=== PATIENT | female | born 1990 | race African-American/Black ===

== ENCOUNTER 2021-05-25 18:19 | Outpatient (CLI) | payer SELFPAY ==
[~2021-05-25] VITALS: Ht 175.3 cm; Wt 80.0 kg
[2021-05-25 18:52] VITALS: BP 125/76
[2021-05-25] MEDS ORDERED: metroNIDAZOLE (FLAGYL) 500MG TABLET PO ONE (19:45)
--- NOTE | 2021-05-25 20:11 | IPNPDOC ---
Subjective Date Seen The patient was seen on 05/25/21. Subjective Chief Complaint/HPI 31yo at 37w 4d by LMP c/w 7w4d US with EVELIA Jun presents with concern for ROM. Pt states she stood up and felt 'wet' this afternoon but denies any gush of fluid. She states she noted a cloudy white discharge on her clothing, denies any odor or bleeding. Does not feel like it was urine. She otherwise denies ctx, bleeding and endorses +GFM. General: Reports: Normal Appetite; Denies: Chills, Night Sweats, Fatigue, Malaise Constitutional: Denies: Chills, Fever, Night Sweats Pulmonary: Denies: Dyspnea, Cough Cardiovascular: Denies: Chest Pain, Palpitations, Orthopnea, Paroxysmal Noc. Dyspnea, Lt Headedness Genitourinary: Denies: Dysuria, Frequency, Incontinence, Retention Psych: Reports: Mood Normal; Denies: Depression, Memory Issues Objective Physical Examination General Exam: Positive: Alert, No Acute Distress Chest Exam: Positive: Normal air movement Heart Exam: Positive: Rate Normal Abdomen Exam: Positive: Other (gravid) Female Exam: Positive: Discharge (SSE: neg for nitrizine, pooling and ferning. Mod amount of white, milky discharge. SVE: C/T/H) Extremity Exam: Positive: Normal pulses; Negative: Clubbing, Cyanosis, Edema Psych Exam: Positive: Mental status NL, Mood NL, Oriented x 3 Other physical findings JOSEFINA neg Wet mount with >50% clue cells Nitrizine/ferning both negative FHT: 140's, mod variability, + accels. Early decel x1, questionable late deceleration at 1914. Remaining tracing following deceleration reassuring with mod variability and + accels [place]: irregular contractions RAD Interpretation STUDY: TAUS: cepahlic, MVP 2.7cm Assessment /Plan Assessment 31yo at 37w4d by LMP c/w 7wk US, EVELIA Jun. complicated by hx of GHTN in prior , hx of LTCS x1, hx of HSV on valtrex. Plan/VTE VTE Prophylaxis Ordered?: No VTE Exclusion Mechanical Proph: Other (triage visit only) Plan SSE neg for ROM x3. Wet prep + for BV. 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 Return precautions given. VS, I&O, 24H, Fishbone Vital Signs/I&O Vital Signs Date Time Temp Pulse Resp B/P (MAP) Pulse Ox O2 Delivery O2 Flow Rate FiO2 05/25/21 18:52 97.0 76 18 125/76 (92) 100 Room Air Laboratory Data Microbiology wet prep + clue cells AUSTIN DILLON M.D. May 25, 2021 20:11
== END 2021-05-25 20:00 | disposition home or self-care (01) ==
LOC: M LDO 18:19
PROVIDERS: ATTEND Obstetrics & Gynecology
DX: O26.893 Other specified pregnancy related conditions, third trimester (principal); Z3A.37 37 weeks gestation of pregnancy; N89.8 Other specified noninflammatory disorders of vagina; O34.219 Maternal care for unspecified type scar from previous cesarean delivery; Z87.59 Personal history of other complications of pregnancy, childbirth and the puerperium; Z88.1 Allergy status to other antibiotic agents
CPT/HCPCS: 59025; 76815; G0378; G0463

== ENCOUNTER 2021-06-04 11:11 | Inpatient (IN) | payer OTHER, SELFPAY ==
[2021-06-04] VITALS (8 sets, daily range): BP systolic 119–140; BP diastolic 69–90
[~2021-06-04] VITALS: Ht 175.3 cm; Wt 88.5 kg
[2021-06-04] MEDS ORDERED: LACTATED RINGER'S 1000 ML IV STA (11:29)
[2021-06-04] MEDS ORDERED: METHYLERGONOVINE MALEATE 0.2 MG/ML VIAL (J2210) IM PRN (11:30)
[2021-06-04] MEDS ORDERED: CARBOPROST TROMETHAMINE 250 MCG/ML AMP IM PRN (11:30)
[2021-06-04] MEDS ORDERED: LIDOCAINE 1% MDV 20ML VIAL INFIL PRN (11:30)
[2021-06-04] MEDS ORDERED: OXYTOCIN DRIP 30 UNITS in IV 1 EA IV PRN ×4 (11:30)
[2021-06-04] MEDS ORDERED: TRANEXAMIC ACID INJection 1,000 MG in NS 100 ML IV PRN (11:30)
[2021-06-04 12:02] LABS: BASO % 0.5 % (0.0-1.0); EOS # 0.1 10^3/uL (0.0-0.5); EOS % 1.4 % (0.0-3.0); HEMATOCRIT 34.1 % (36.0-47.0); HEMOGLOBIN 10.9 g/dl (12.0-15.5); LYMPH # 0.9 10^3/uL (1.5-5.0); LYMPH % 20.1 % (24.0-44.0); MEAN CORPUSCULAR HEMOGLOBIN 25.2 pg (27.0-33.0); MEAN CORPUSCULAR VOLUME 78.8 fl (80.0-96.0); MONO # 0.3 10^3/uL (0.0-0.8); MONO % 7.6 % (2.0-8.0); NEUTROPHILS % 70.2 % (36.0-66.0); PLATELET COUNT, AUTOMATED 260 10^3/uL (150-450); RED BLOOD COUNT 4.33 10^6/uL (4.00-5.40); WHITE BLOOD COUNT 4.2 10^3/uL (4.0-10.0)
[2021-06-04] MEDS ORDERED: ASPI81CH33 PO (12:23)
[2021-06-04] MEDS ORDERED: VITA100T59 PO (12:23)
[2021-06-04] MEDS ORDERED: FERR325T3 PO (12:23)
[2021-06-04] MEDS ORDERED: PRENTAB9 PO (12:23)
[2021-06-04] MEDS ORDERED: METR375C3 PO (12:23)
[2021-06-04] MEDS: LR 1,000 ML IV SCH (13:13)
--- NOTE | 2021-06-04 13:44 | HPEPDOC ---
Obstetrical History & Physical General Date of Admission Jun 04, 2021 at 11:11 History of Present Illness Chief Complaint: Patient is a 31yo at 39+0 wks gestation who presents to L&D triage for induction of labor due to heart rate cat 2 tracing found on NST in clinic. Patient presents: Spouse and mother HPI: Reports some irregular contractions, otherwise feeling physically well today. Frustrated that she cannot wait for labor to start. Strongly desires TOLAC and to be able to remember delivery . Denies any leaking of fluid, vaginal bleeding. Reporting good movement. Denies any headaches, nausea, vomiting, RUQ pain. Denies any dysuria, vaginal discharge, vaginal itching/burning. ROS: GEN: Feeling Fine. Denies fevers, chills. Denies Fatigue. Psych: Denies severe depression, SI/HI. States moods are stable. Head: Denies Headaches, facial pain, or sinus pressure. Eyes: Denies change in vision/ scotomata/blurred vision. ENT: Denies sore throat. Denies ear pain or pressure. Denies nasal discharge. Resp: Denies SOB/H[place]INSON, cough, or wheezing. Card: Denies palpitations or Chest pain. GI: Denies nausea, vomiting, diarrhea, constipation. No abdominal pain. Some heartburn. : Denies vaginal burning or itching. Denies foul smelling vaginal discharge. Denies dysuria. Denies flank pain. Denies any s/s of HSV outbreak. MSK: Denies calf pain. Denies low back pain. Lymph: Denies edema to upper or lower extremities bilaterally. Skin: Denies any skin changes, lesions, lacerations, ecchymosis, pruritus, or rashes. ALLERGIES: No allergic/immunologic symptoms. Reviewed allergy azithromycin. Dating Final EDC: Jun 11, 2021 Final EDC for Daily Update: Jun 11, 2021 Final EDC by: LMP LMP: Sep 04, 2020 EGA at Admission: 39.0 Antepartum Course Diagnos(e)s 1. Hx PTLC, desires TOLAC 2. Hx GHTN, baseline labs normal 3. Hx HSV 2, on valtrex 4. EIF on anatomy scan, QUAD negative 5. Hx IUGR this , BPP 6/8 on 06/04 6. Anemia@28wks (10.5/32.4) Height (inches): 68 Pre- weight (lbs.): 162 Admission Weight (lbs.): 195.8 Change in Weight (lbs.): 33.8 Past Medical History Past Obstetrical History : Past Obstetrical History: Multigravida (2014 PLTCS for NRFHR after prolonged PROM at 39wks, female 5#9oz. G2 SAB. ) TECHNICAL SALES SUPPORT SPECIALIST History: Spontaneous (x1), Genital Warts (, on HSV prophylaxis) Past Medical History Medical History Hx GHTN first Surgical History: section Family History Family History Mother DM, MGM DM, Sister CVA Social History Marital Status: Family situation: Spouse/partner home Psychosocial History: No pertinent psych hx * Smoker: non-smoker Alcohol: Denies Drugs: denies Imunizations Tdap status: current Allergies Coded Allergies: azithromycin (Verified Allergy, Severe, hives, sob, , 06/04/21) Medications Scheduled Ascorbic Acid (Vitamin C) 100 Mg Tablet, 1 TAB PO DAILY Aspirin (Aspirin) 81 Mg Tab.chew, 81 MG PO DAILY for pain No.137/Iron/Folic Acd ( Vitamin Tablet) 1 Each Tablet, 1 TAB PO DAILY Miscellaneous Medications Ferrous Sulfate (Ferrous Sulfate) 325 Mg Tablet.dr, 325 MG PO Metronidazole (Metronidazole) 375 Mg Capsule, 375 MG PO Physical Examination Physical Examination Exam: General: Well-appearing, in no acute distress. Uncomfortable with contractions. PSYCH: Well groomed. Appropriate affect, normal mood. Conversed easily. Neuro: Oriented to time, place, and person. RESP: Lungs clear to auscultation bilaterally without wheezes, rales or rhonchi. Unlabored breathing. CV: Normal RRR, no murmur, c/w normal . No edema to bilateral upper and lower extremities. Negative calf tenderness. Breast: Normal gravid appearance, without discharge or skin lesions Back: No tenderness on palpation. ABD: Gravid. Soft, non-tender. BS normal x4 quad. Uterus non-tender. MSK: Normal mvmt all extremities. Steady gait. Judy from a seated position without assistance. SKIN: Dry, intact. Genitalia: External Genitalia showed no abnormalities, without lesions; normal vulva with NO vulvar atrophy, hypertrophy, stricture, adhesions, ulcers, lesions, masses. No vaginal discharge was observed. No unusual odors. Perianal area intact without lesions or visible hemorrhoids. No skin tag noted. Obstetrical: Clinical Pelvimetry: Pelvis adequate, untested. FHR: 140 rate, moderate variability, accelerations present. Noted 1variable while on L&D monitor. Contractions present, irregular. 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 for exam: Alia JanessaROCK Vital Signs/I&O Vital Signs Label Value Date Time Patient Temperature 97.6 degrees F 06/04/21 1150 Temperature Source Temporal 06/04/21 1150 Blood Pressure Assessment 121/69 (86) 06/04/21 1150 Source Automatic Cuff (NIBP) Pulse 72 06/04/21 1150 Respiratory Rate 18 bpm 06/04/21 1150 Laboratory Data 24H LABS Laboratory Tests 2 06/04/21 11:29: Serology Scanned Report Hepatitis B Testing Item Value Date Time Platelet Count 260 10^3/uL 06/04/21 1129 Basophils (%) (Auto) 0.5 % 06/04/21 1129 Eosinophils # (Auto) 0.1 10^3/uL 06/04/21 1129 Neutrophils # (Auto) 3.0 10^3/uL 06/04/21 1129 Eosinophils (%) (Auto) 1.4 % 06/04/21 1129 Monocytes (%) (Auto) 7.6 % 06/04/219 Mean Corpuscular Hemoglobin 25.2 pg L 06/04/21 1129 Mean Corpuscular Volume 78.8 fl L 06/04/21 1129 Hemoglobin 10.9 g/dl L 06/04/21 1129 White Blood Count 4.2 10^3/uL 06/04/21 1129 Red Blood Count 4.33 10^6/uL 06/04/21 1129 Hematocrit 34.1 % L 06/04/219 Mean Corpuscular Hemoglobin Concent 32.0 g/dl 06/04/21 1129 Red Cell Distribution Width 14.8 % H 06/04/21 1129 Immature Granulocyte % (Auto) 0.2 % 06/04/21 1129 Neutrophils (%) (Auto) 70.2 % H 06/04/21 1129 Lymphocytes (%) (Auto) 20.1 % L 06/04/21 1129 Lymphocytes # (Auto) 0.9 10^3/uL L 06/04/21 1129 Monocytes # (Auto) 0.3 10^3/uL 06/04/21 1129 Nucleated Red Blood Cells % (auto) 0.0 % 06/04/21 1129 Basophils # (Auto) 0.0 10^3/uL 06/04/21 1129 Pertinent Laboratoy Data Blood Type: A+ RBC Antibody Screen: Negative HIV: Negative Hepatitis B: Negative Rapid Plasma Reagin: Nonreactive Rubella: Immune Varicella: Immune Chlamydia/Gonorrhea: Negative Group B Streptococcus: Negative Quad Screen Test: Negative Cystic Fibrosis: Negative Glucose Tolerance Test: 130 Anatomy Ultrasound Ultrasound Date: Jan 21, 2021 Placenta Location: Anterior (normal anatomy with limited views of face and EIF to heart) Other Ultrasounds 03/12/21 Follow up: AUA 26+2. EFW 18% with AC <10%. Normal face. 04/09/21 BPP: 06/14 BPP, EFW 17%, AC 9% 04/23 BPP: 06/14/ BPP, EFW 30%, AC 20% 05/20 BPP: 06/14, EFW 22%, AC 8% 06/03 BPP: 04/14, EFW 18%, AC 10% Assessment/Plan Assessment 31yo at 39+0 wks gestation presents to L&D for induction of labor at term due to heart rate cat 2 tracing while in clinic today. A positive/GBS negative/RI/ VSS Benign physical exam FHR Cat 2 tracing with additional variable. Pt had one late and one variable decel during APFT while in clinic today. Was being monitored for IUGR. BPP yesterday 06/14 with last EFW 18%, AC10%, VTX by Ultrasound EFW: 3000 SVE: 1/0/-3, posterior, medium Hx for NRFHR. Hx HSV2, currently on valtrex. PLAN: Admit, labs, IV, consent completed. Reviewed TOLAC consent with patient, desires TOLAC. Discussed plan with Dr. Gayle. Address pain needs as the arise, patient undecided for pain management in labor Continuous EFM Bright light exam negative for lesions. Plan to start IOL process with double lumen antoine bulb. Placed with speculum, filled to 80/80 at 1300. Pt tolerated well. Plan to continue with pitocin once antoine bulb out. Discussed thoroughly patient expectations for labor and possibility of repeat if fetus does not tolerate labor. Anticipate Consult physician service as needed Labor and Delivery Counseling Reviewed with patient the following with the patient in regards to vaginal delivery (Deliver through the vaginal canal): The purpose of the procedure is to deliver a baby. There may be maternal risks involved with vaginal delivery to include but not limited to: -Use of the medications to induce or augment labor with the risks of uterine rupture -Artificial rupture of the amniotic sac with the risk of cord prolapse -Internal monitors with the associate risks of infection or fever -Infection, which is fever during the labor process -IV pain management, anesthesia as indicated and associated risks with those medications -Vaginal lacerations and repair, episiotomy and repair when needed -Injury to the baby or mother at the time of delivery, -Maternal organ damage, maternal or -Prolonged hospitalized -Possible painful intercourse, chronic pelvic pain In addition to these maternal risks, there may be other possible risks involved in this procedure including, but not limited to: bleeding with the possible need for blood transfusion. Risks of blood transfusion can include but are not limited to: possible transfusion reaction, virus transmission. The likelihood of a successful outcome for this procedure is: [Good] Reviewed with patient the generally recognized and accepted practical alternatives to this procedure and the accompanying risks are: -Possible emergent Section with its risk of damage to internal organs and necessary repairs, laceration to the baby and necessary repairs -Possible operative vaginal delivery to include forceps or vacuum assist, resulting in: maternal tissue damage, baby bruising, hematoma, scalp swelling, scalp laceration, skull fracture, facial paralysis and its repair Reviewed with patient the practice of medicine is not an exact science and that no guarantees can be made to the patient concerning the results of this procedure, nor guarantees to the effect this procedure will have on underlying medical issues. Reviewed with patient that during the course of labor, it may be necessary or appropriate to perform additional procedure(s) which were unforeseen or not know n to be needed at the time of admission. TOLAC consent on paper chart. SHAHLA KNIGHT CNM Jun 04, 2021 11:44
--- NOTE | 2021-06-04 15:46 | IPNPDOC ---
Obstetrical Progress Note Date of Service Jun 04, 2021 Subjective Feeling more pain with contractions, states 5/10, low cramping. Spouse at Bedside for support. Objective Vital Signs Date Time Temp Pulse Resp B/P (MAP) Pulse Ox O2 Delivery O2 Flow Rate FiO2 06/04/21 11:50 72 18 121/69 (86) 06/04/21 11:50 97.6 S: Coping well with pain. Spouse at bedside for support O: FHR- 140, mod variability. Accelerations present. 3 late decelerations noted, resolved with position changes. Contractions- every 5 min. SVE- deffered, antoine bulb still in place. Membranes- intact. Assessment and Plan Additional Comments A/P 31yo at 39+0 wks gestation admitted for induction of labor due to heart rate cat 2 tracing in clinic. A positive/GBS negative/RI/ VSS FHR Cat 2 tracing, intermittent late decelerations noted. Overall reassuring. Address pain needs as they arise, discussed option for IV pain medication. Anticipate starting pitocin once antoine bulb out. Anticipate Hx , Dr. Gayle aware of patient. Pt still desires to continue with TOLAC. Consult physician service as needed SHAHLA KNIGHT CNM Jun 04, 2021 15:46
[2021-06-05] VITALS (22 sets, daily range): BP systolic 89–152; BP diastolic 50–110
[2021-06-05] MEDS ORDERED: FENTANYL 2MCG/ML ROPIVACAINE 0.2% IN 0.9% NACL 100ML IVBAG As Ordered ONE (07:08)
--- NOTE | 2021-06-05 07:09 | IPNPDOC ---
Text Note Date of Service The patient was seen on 06/05/21. NOTE 06/05/21 0700 review progress 31 y.o ADMITTED CATEGORY 2 STRIP FROM OFFICE IOL [place] BULB. REQUESTS TOLAC REFUSES PITOCIN ACCEPTS [facility] . HISTORY INCLUDES PTLC FOR NRFHT ,GHTN, HSV 2 NO CERVICAL LESIONS,EIF QUAD NEGATIVE,?IUGR BABY >6 LBS BULB FELL OUT AND CONTRACTIONS MODERATE REQUESTS PAIN MEDICATION CERVICAL CHECK POSTERIOR 4 CM 70% EFFACED -3 STATION AROM MINIMAL FLUID US VERTEX FLUID 5 CM FOUND 1 QUADRANT ONLY OLIGOHYDRAMNIOS. REQUESTS EPIDURAL SAFE TO P ROCEED VS,Fishbone, I+O VS, Fishbone, I+O Laboratory Tests 06/04/21 11:29 Vital Signs Date Time Temp Pulse Resp B/P (MAP) Pulse Ox O2 Delivery O2 Flow Rate FiO2 06/05/21 04:47 97.8 78 18 121/69 (86) Dharmesh Gayle MD Jun 05, 2021 07:08
[2021-06-05] MEDS ORDERED: ACYC1CAP20 PO (07:21)
[2021-06-05] MEDS ORDERED: ePHEDrine SULFATE 25 MG/5 ML(5MG/ML) SYRINGE As Ordered ONE (08:14)
[2021-06-05] MEDS: ePHEDrine SULFATE 25 MG/5 ML(5MG/ML) SYRINGE IV PRN (08:29)
[2021-06-05] MEDS ORDERED: ONDANSETRON 4MG/2ML VIAL IV PRN (08:30)
[2021-06-05] MEDS ORDERED: NALOXONE INJ 0.4MG/1ML VIAL (J2310 PER 1MG) IV PRN (08:30)
[2021-06-05] MEDS ORDERED: FENTANYL/ROPIVACAINE/NACL BAG 100 ML EPIDURAL SCH (08:30)
[2021-06-05] MEDS ORDERED: EPIDURAL COMMENT XX SCH (08:30)
[2021-06-05] MEDS ORDERED: diphenhydrAMINE 50MG/ML VIAL (J1200) IV PRN (08:30)
[2021-06-05] MEDS ORDERED: LACTATED RINGER'S 1000 ML IV PRN (08:30)
[2021-06-05] MEDS ORDERED: EPIDURAL/PCA KEYS XX PRN (08:30)
[2021-06-05] MEDS: LR 1,000 ML IV SCH (08:30)
[2021-06-05] MEDS ORDERED: REFRIGERATOR IV KEYS XX PRN (08:30)
--- NOTE | 2021-06-05 08:40 | IPNPDOC ---
Obstetrical Progress Note Date of Service Jun 05, 2021 Subjective Pt resting comfortably after epidural placement, states improvement in pain with mild left sided discomfort. Objective Vital Signs Date Time Temp Pulse Resp B/P (MAP) Pulse Ox O2 Delivery O2 Flow Rate FiO2 06/05/21 08:18 79 98/51 (67) 06/05/21 04:47 97.8 18 Assessment Heart Rate (FHR): 120 Variability: Moderate Accelerations: Positive Decelerations: Late, Variable, Intermittent Heart Rate Tracing: Category II Tocometer Contractions: Yes Frequency: every 1-3 min. Duration: greater than 60 seconds Strength: palpated as moderate, resting tone palp/soft Sterile Vaginal Examination Dilation: 6 cm Effacement (%): 80% Station: -3 Cervical Consistency: Soft Cervical Position: Posterior Postion/Presentation: Cephalic presentation Assessment and Plan Age: 31 : 3 Term: 1 Pre-term: 0 Abortions: 1 Livin Weeks & Days 39+1 Status: Reassuring Group B Streptococcus: Negative Anticipate: Vaginal Delivery Additional Comments LR @125ml/hr, continuous efm x2,monitor for change in or maternal status, encourage frequent maternal repositioning, evaluate for change as indicated, consider pitocin augmentation as indicated, anticipate vaginal delivery JOHANNA RAMOS CNM Jun 05, 2021 08:40
--- NOTE | 2021-06-05 10:17 | IPNPDOC ---
Obstetrical Progress Note Date of Service Jun 05, 2021 Subjective Pt c/o rectal pressure Objective Vital Signs Date Time Temp Pulse Resp B/P (MAP) Pulse Ox O2 Delivery O2 Flow Rate FiO2 06/05/21 09:35 92 06/05/21 09:28 103/58 (73) 06/05/21 04:47 97.8 18 Assessment Heart Rate (FHR): 130 (frequent breaks in monitoring audible decel with pushing.) Decelerations: Other (Repositioned to right lateral with recovery to baseline) Tocometer Contractions: Yes Frequency: every 1-3 min. Duration: greater than 60 seconds Strength: palpated as moderate, resting tone palp/soft Sterile Vaginal Examination Dilation: complete Effacement (%): 100% Station: +2 Postion/Presentation: Cephalic presentation Assessment and Plan Age: 31 : 3 Term: 1 Pre-term: 0 Abortions: 1 Livin Weeks & Days 39+1 Group B Streptococcus: Negative Anticipate: Vaginal Delivery Additional Comments Pt repositioned and coached to push with contractions, anticipate vaginal delivery. Pt states desire to continue to avoid pitocin after delivery. Reviewed rationale for use to prevent bleeding after delivery. Pt will attempt early . If bleeding is heavy, pt is aware that pitocin will be offered again. JOHANNA RAMOS CNM Jun 05, 2021 10:17
[2021-06-05 12:04] LABS: CORD GAS ABE A -6.2; CORD GAS ABE V -5.2; CORD GAS HCO3 A 22.2 MEQ/L; CORD GAS HCO3 V 20.5 MEQ/L; CORD GAS O2 SAT V 78.5 %; CORD GAS PCO2 V 40.4 mmHg; CORD GAS PH A 7.224 UNITS; CORD GAS PH V 7.323 UNITS; CORD GAS PO2 A 28.1 mmHg; CORD GAS SBC A 18.6 MEQ/L; CORD GAS SBC V 19.8 MEQ/L; CORD GAS TCO2 A 23.9 MEQ/L; CORD GAS TCO2 V 21.7 MEQ/L
[2021-06-05] MEDS ORDERED: RHOGAM 300 MCG (1500 IU) INJ (J2790) IM SCH (12:20)
[2021-06-05] MEDS ORDERED: IBUPROFEN 800 MG TAB PO PRN (12:20)
[2021-06-05] MEDS ORDERED: METHYLERGONOVINE MALEATE 0.2 MG TAB PO PRN (12:20)
[2021-06-05] MEDS ORDERED: MEASLES,MUMPS,RUBELLA VACCINE INJ (MMR-II) (90707) SC SCH (12:20)
[2021-06-05] MEDS ORDERED: DIBUCAINE 1% OINTMENT 30GM TOP PRN (12:20)
[2021-06-05] MEDS ORDERED: DOCUSATE SODIUM 100MG CAPSULE PO PRN (12:20)
--- NOTE | 2021-06-05 12:44 | DNPDOC ---
[facility] [place] Delivery Note Delivery Note DATE OF DELIVERY: 05Jun2021 PREDELIVERY DIAGNOSIS: 39-1/7 weeks' gestation and labor. POST DELIVERY DIAGNOSIS: Delivered. PROCEDURE: Vaginal after . BUOY TENDER: Zari Ramos ANESTHESIA: epidural. ESTIMATED BLOOD LOSS: 350 mL. FINDINGS: 5 pound 11 ounce female infant Yarely, Score 9/9, no nuchal cord. DELIVERY SUMMARY: Patient is a 31-year-old 3 now para 2-0-1-2 who was admitted to labor and delivery for IOL on 04Jun2021. Pt called out with rectal pressure and was found to be C/C/+2. Slow decent was made with maternal pushing efforts in multiple positions. Pt assisted to right lateral position and progressed to in OA with restitution to PRIYANKA. No nuchal cord was noted after delivery of the head. The right anterior shoulder delivered easily followed by the posterior shoulder and corpus. The was placed immediately skin to skin on the maternal abdomen where she was dried and stimula sukhjinder for a vigorous cry. Pt continued to decline pitocin. Cord gases were collected and sent for testing. The placenta delivered intact in Huertas presentation with moderate bleeding. The fundus was massaged until firm and bleeding slowed appropriately. Examination of the perineum revealed a small second degree laceration which was repaired using the Henry method with 3-[address]. Bleeding was noted to have increased and the cervix was swept for several clots and the fundus massaged with bleeding appropriately slowed. The patient was counseled on the need for watching or increased bleeding, frequent fundal massage in the immediate period, early and reasons to call for help with expressed understanding and continued to d ecline bleeding prophylaxis. ZARI RAMOS CNM Jun 05, 2021 12:44
[2021-06-05] MEDS: ACETAMINOPHEN TAB 650MG DOSE (2X325MG) PO PRN ×2 (17:54→22:29)
[2021-06-06 06:00] VITALS: BP 117/63
--- NOTE | 2021-06-06 06:59 | IPNPDOC ---
Progress Note Date of Service: Jun 06, 2021 Day#: 1 Progress Note Ms. Jefferson is a 31yo PPD1 after following IOL for CAT II FHR. 5 po und 11 ounce female infant Yarely, Score 9/9. She has been ambulating, voiding spontaneously without issue and tolerating regular diet. Breast feeding without issue. Reports lochia is light. Patient is ambulating well. Reports some cramping and shaking with . Denies any pain. Voiding and stooling without difficulty. Denied n/v/d, cp, sob, orr, visual changes, abd pain, vaginal discharge, urinary sx. APC 1. GHTN in prior 2. HSV2 on valtrex 3. anemia 4. single elevated temp 100.4 1800 06/05 OBJECTIVE: VITAL SIGNS: Within normal limits, afebrile. Alert and oriented times three. Breath sounds clear to auscultation. Heart rate: Regular rate and rhythm, no murmurs, rubs or gallops. Abdomen: Fundus firm at U-2. Soft, NTTP. [Minimal] lochia per patient. Breasts without skin changes or erythema. Non-tender. LE non-tender, no clonus. ASSESSMENT: Ms. Jefferson is a 31yo PPD1 after following IOL for CAT II FHR. 5 pound 11 ounce female infant Yarely, Score 9/9. She had a single elevated temperature last night but has been non-tachycardic. She has no vaginal dischage, no breast or fundal tenderness and no evidence of DVT/PE. Vitals otherwise within normal limits, hemodynamically stable with no physical exam evidence of infection. She reports "chills" but only after she breastfeeds. PLAN: 1. Discharge to home likely tomorrow. 2. Tylenol and Motrin for pain. 3. Encourage breast feeding and ambulation. 4. Undecided contraception, educated on risks of close interval . 5. Routine PP visit in 6 weeks in clinic. 6. Discussed return precautions at length to include pelvic rest. 7. Will continue to monitor for si/sx of infection, given no other signs and resolution of temp suspect associated with let down VS, I&O, 24H, Fishbone Vital Signs/I&O Vital Signs Date Time Temp Pulse Resp B/P (MAP) Pulse Ox O2 Delivery O2 Flow Rate FiO2 06/06/21 06:00 99.3 60 16 117/63 (81) 100 Room Air I&O- Last 24 Hours up to 6 AM 06/06/21 06:00 Intake Total 3000 ml Output Total 2450 ml Balance 550 ml Laboratory Data 24H LABS Laboratory Tests 2 06/05/21 11:57: Cord Arterial Blood pH 7.224, Cord Arterial Blood PCO2 55.0, Cord Arterial Blood PO2 28.1, Cord Arterial Blood HCO3 22.2, Cord Arterial Blood Total CO2 23.9, Cord Arterial Blood Base Excess -6.2, Cord Arterial Base Excess (Standard 18.6, Cord Arterial Bld Oxygen Saturation 60.0, Cord Venous Blood pH 7.323, Cord Venous Blood PCO2 40.4, Cord Venous Blood PO2 36.0, Cord Venous Blood HCO3 20.5, Cord Venous Blood Total CO2 21.7, Cord Venous Base Excess (Actual) -5.2, Cord Venous Base Excess (Standard) 19.8, Cord Venous Blood Oxygen Saturation 78.5 LYNNETTE BANSAL DO Jun 06, 2021 06:59
[2021-06-06] MEDS: PRENATAL VITAMINS CHEWABLE TABLET PO SCH (08:24)
[2021-06-06] MEDS: ACETAMINOPHEN TAB 650MG DOSE (2X325MG) PO PRN (08:27)
[2021-06-06 10:00] VITALS: BP 120/68
[2021-06-06 14:12] VITALS: BP 129/77
[2021-06-06 17:57] VITALS: BP 114/62
[2021-06-06 22:00] VITALS: BP 121/78
[2021-06-07 06:00] VITALS: BP 118/62
--- NOTE | 2021-06-07 07:09 | DS.PDOC ---
Discharge Summary General Date of Admission Jun 04, 2021 at 11:11 Date of Discharge June 07, 2021 Discharge Summary HOSPITAL COURSE: Ms. Jefferson is a 31 yo G3 now P2 who underwent an uncomplicated on 05Jun2021 after being admitted for an IOL for a Cat II tracing at 39 weeks gestation. Her course was unremarkable. On her day of discharge she met all appropriate discharge criteria. She was ambulating, voiding, tolerating a regular diet, and had minimal lochia. DISCHARGE MEDICATIONS: Please see below. ALLERGIES: Please see below. PHYSICAL EXAMINATION ON DISCHARGE: VITAL SIGNS: Please see below. GENERAL: AAOX3, NAD ABDOMINAL EXAMINATION: Fundus firm at U-2. No fundal tenderness EXTREMITIES: No edema PSYCHIATRIC EXAMINATION: Affect appropriate LABORATORY DATA: Please see below. ACTIVITY: Pelvic rest for 6 weeks DIET: Regular DISCHARGE PLAN: Discharge home DISPOSITION: Discharge home on 07Jun2021 DISCHARGE INSTRUCTIONS: 1. Nothing in the vagina for 6 weeks ITEMS TO FOLLOWUP ON ON OUTPATIENT: 1. Call to schedule a visit for 6 weeks post delivery DISCHARGE CONDITION: Stable. TIME SPENT ON DISCHARGE: Greater than 20 minutes. Jody Ferrari DO Vital Signs/I&Os Vital Signs Date Time Temp Pulse Resp B/P (MAP) Pulse Ox O2 Delivery O2 Flow Rate FiO2 06/07/21 06:00 98.5 64 18 118/62 (80) 98 Room Air Discharge Medications Scheduled Acyclovir (Acyclovir) 200 Mg Capsule, 1,000 MG PO DAILY, (Reported) Ascorbic Acid (Vitamin C) 100 Mg Tablet, 1 TAB PO DAILY, (Reported) Aspirin (Aspirin) 81 Mg Tab.chew, 81 MG PO DAILY for pain, (Reported) No.137/Iron/Folic Acd ( Vitamin Tablet) 1 Each Tablet, 1 TAB PO DAILY, (Reported) Miscellaneous Medications Ferrous Sulfate (Ferrous Sulfate) 325 Mg Tablet.dr, 325 MG PO, (Reported) Metronidazole (Metronidazole) 375 Mg Capsule, 375 MG PO, (Reported) Allergies Coded Allergies: azithromycin (Verified Allergy, Severe, hives, sob, , 06/04/21) JODY FERRARI DO Jun 07, 2021 07:09
[2021-06-07] MEDS ORDERED: ACET1TAB55 PO (07:11)
[2021-06-07] MEDS ORDERED: IBUP80TA PO (07:11)
[2021-06-07] MEDS ORDERED: DIBU28OI2 TOP (07:11)
[2021-06-07] MEDS: PRENATAL VITAMINS CHEWABLE TABLET PO SCH (08:12)
[2021-06-07] MEDS: ACETAMINOPHEN TAB 650MG DOSE (2X325MG) PO PRN (08:13)
== END 2021-06-07 13:15 | disposition home or self-care (01) | DRG 806 ==
LOC: M LDI 11:11 → M OBS 06-05 14:45
PROVIDERS: ADMIT Advanced Practice Midwife; ATTEND Registered Nurse
PROC: 10E0XZZ Delivery of Products of Conception, External Approach (ICD-10-PCS; principal; 2021-06-05)
PROC: 0KQM0ZZ Repair Perineum Muscle, Open Approach (ICD-10-PCS; 2021-06-05)
DX: O76 Abnormality in fetal heart rate and rhythm complicating labor and delivery (principal); Z37.0 Single live birth; O98.32 Other infections with a predominantly sexual mode of transmission complicating childbirth; Z3A.39 39 weeks gestation of pregnancy; O34.211 Maternal care for low transverse scar from previous cesarean delivery; A60.09 Herpesviral infection of other urogenital tract; O70.1 Second degree perineal laceration during delivery; O99.02 Anemia complicating childbirth; D64.9 Anemia, unspecified

== ENCOUNTER 2021-09-03 10:57 | Emergency (ER) | payer OTHER ==
[~2021-09-03] VITALS: Ht 172.7 cm; Wt 81.6 kg
[~2021-09-03 10:57] MED LIST: ACET1TAB55 PO; ACYC1CAP20 PO; ASPI81CH33 PO; DIBU28OI2 TOP; FERR325T3 PO; IBUP80TA PO; METR375C3 PO; PRENTAB9 PO; VITA100T59 PO
--- OUTSIDE RECORDS SUMMARY | 2021-09-03 13:09 | CCD ---
Author Author [facility] Organization [facility] Address Unknown Phone Unavailable Care Team Providers Care Test Consultant Name Role Phone NOBLE Nakul HARRISRI Unavailable Unavailable Jamila SOUTH MD Unavailable Unavailable Jamila SOUTH MD Unavailable Unavailable Jamila SOUTH MD Unavailable Unavailable Jamila SOUTH MD Unavailable Unavailable Jamila SOUTH MD Unavailable Unavailable Jamila SOUTH MD Unavailable Unavailable Jamila SOUTH MD Unavailable Unavailable Jamila SOUTH MD Unavailable Unavailable Jamila SOUTH MD Unavailable Unavailable Jamila SOUTH MD Unavailable Unavailable Jamila SOUTH MD Unavailable Unavailable Jamila SOUTH MD Unavailable Unavailable Jamila SOUTH MD Unavailable Unavailable Jamila SOUTH MD Unavailable Unavailable Jamila SOUTH MD Unavailable Unavailable Jamila SOUTH MD Unavailable Unavailable Jamila SOUTH MD Unavailable Unavailable Jamila SOUTH MD Unavailable Unavailable Jamila SOUTH MD Unavailable Unavailable Jamila SOUTH MD Unavailable Unavailable Jamila SOUTH MD Unavailable Unavailable Jamila SOUTH MD Unavailable Unavailable Jamila SOUTH MD Unavailable Unavailable Jamila SOUTH MD Unavailable Unavailable Jamila SOUTH MD Unavailable Unavailable Jamila SOUTH MD Unavailable Unavailable Jamila SOUTH MD Unavailable Unavailable Jamila SOUTH MD Unavailable Unavailable Jamila SOUTH MD Unavailable Unavailable Jamila SOUTH MD Unavailable Unavailable Jamila SOUTH MD Unavailable Unavailable Jamila SOUTH MD Unavailable Unavailable Jamila SOUTH MD Unavailable Unavailable Jamila SOUTH MD Unavailable Unavailable Jamila SOUTH MD Unavailable Unavailable Jamila SOUTH MD Unavailable Unavailable Jamila SOUTH MD Unavailable Unavailable Jamila SOUTH MD Unavailable Unavailable Jamila SOUTH MD Unavailable Unavailable Jamila SOUTH MD Unavailable Unavailable Jamila SOUTH MD Unavailable Unavailable Jamila SOUTH MD Unavailable Unavailable Jamila SOUTH MD Unavailable Unavailable Jamila SOUTH MD Unavailable Unavailable Jamila SOUTH MD Unavailable Unavailable Jamila SOUTH MD Unavailable Unavailable Jamila SOUTH MD Unavailable Unavailable Jamila SOUTH MD Unavailable Unavailable Jamila SOUTH MD Unavailable Unavailable Jamila SOUTH MD Unavailable Unavailable Jamila SOUTH MD Unavailable Unavailable Jamila SOUTH MD Unavailable Unavailable Jamila SOUTH MD Unavailable Unavailable Jamila SOUTH MD Unavailable Unavailable Jamila SOUTH MD Unavailable Unavailable Jamila SOUTH MD Unavailable Unavailable Jamila SOUTH MD Unavailable Unavailable Jamila SOUTH MD Unavailable Unavailable Jamila SOUTH MD Unavailable Unavailable Trini Gayle MD Unavailable Unavailable Trini Gayle MD Unavailable Unavailable Trini Gayle MD Unavailable Unavailable Trini Gayle MD Unavailable Unavailable Trini Gayle MD Unavailable Unavailable Trini Gayle MD Unavailable Unavailable Trini Gayle MD Unavailable Unavailable Trini Gayle MD Unavailable Unavailable Trini Gayle MD Unavailable Unavailable Trini Gayle MD Unavailable Unavailable Trini Gayle MD Unavailable Unavailable Trini Gayle MD Unavailable Unavailable Trini Gayle MD Unavailable Unavailable Trini Gayle MD Unavailable Unavailable Trini Gayle MD Unavailable Unavailable Trini Gayle MD Unavailable Unavailable Trini Gayle MD Unavailable Unavailable Trini Gayle MD Unavailable Unavailable Trini Gayle MD Unavailable Unavailable Trini Gayle MD Unavailable Unavailable Trini Gayle MD Unavailable Unavailable Trini Gayle MD Unavailable Unavailable Trini Gayle MD Unavailable Unavailable Trini Gayle MD Unavailable Unavailable Trini Gayle MD Unavailable Unavailable Trini Gayle MD Unavailable Unavailable Trini Gayle MD Unavailable Unavailable Trini Gayle MD Unavailable Unavailable Trini Gayle MD Unavailable Unavailable Trini Gayle MD Unavailable Unavailable Trini Gayle MD Unavailable Unavailable Re-disclosure Warning The records that you are about to access may contain information from federally-assisted alcohol or drug abuse programs. If such information is present, then the following federally mandated warning applies: This information has been disclosed to you from records protected by federal confidentiality rules (42 CFR part 2). The federal rules prohibit you from making any further disclosure of this information unless further disclosure is expressly permitted by the written consent of the person to whom it pertains or as otherwise permitted by 42 CFR part 2. A general authorization for the release of medical or other information is NOT sufficient for this purpose. The Federal rules restrict any use of the information to criminally investigate or prosecute any alcohol or drug abuse patient.The records that you are about to access may contain highly sensitive health information, the redisclosure of which is protected by Article 27-F of the [facility] Public Health law. If you continue you may have access to information: Regarding HIV / AIDS; Provided by facilities licensed or operated by the [facility] Office of Mental Health; or Provided by the [facility] Office for People With Developmental Disabilities. If such information is present, then the following [facility] mandated warning applies: This information has been disclosed to you from confidential records which are protected by state law. State law prohibits you from making any further disclosure of this information without the specific written consent of the person to whom it pertains, or as otherwise permitted by law. Any unauthorized further disclosure in violation of state law may result in a fine or [place] [facility] sentence or both. A general authorization for the release of medical or other information is NOT sufficient authorization for further disc losure. Encounters Encounter Providers Location Date Indications Data Source(s ) Outpatient Attender: ANABEL BUCKLEYeferrer: Dharmesh lea MD [id number] 04/01/2021 12:00:[address] [facility] Outpatient Attender: MARBELLA DICKEYReferrer: Dharmesh Flores 04/01/2021 12:00:[address] [facility] Medications No Information Insurance Providers Payer name Policy type / Coverage type Policy ID Covered constitution party ID Covered constitution party's relationship to porter Policy Porter Plan Information U [id number] Self [id number] EAST ACTIVE DUTY [id number] SP [id number] ACTIVE DUTY [id number] SP [id number] SELF PAY ONLY [id number] SP [id number] Problems, Conditions, and Diagnoses No Information Surgeries/Procedures No Information Results ID Date Data Source [id number] 04/01/2021 10:45:54 AM EDT [facility] Name Value Range Interpretation Code Description Data Cierra rce(s) Supporting Document(s) Progress Note [facility] [id number] [file] [id number] Procedure Social History Code Duration Value Status Description Data Source(s ) Alcohol intake 04/01/2021 12:00:00 AM EDT Ex-drinker (finding) comp leted Ex- drinker (finding) [facility] Tobacco use and exposure 04/01/2021 12:00:00 AM EDT Never used co mpleted Never used [facility] Smoking 04/01/2021 12:00:00 AM EDT Never smoker completed Never s moker [facility] 09/18/2020 12:00:00 AM EST completed [facility] Vital Signs ID Date Data Source [id number] 04/01/2021 10:45:54 AM EDT [facility] Name Value Range Interpretation Code Description Data Source(s) WEIGHT RECORDED 185.[address] [facility] Body height Measured 69 in 69 in [facility]
[2021-09-03 14:12] LABS: BASO # 0.1 10^3/uL (0.0-0.2); BASO % 1.1 % (0.0-1.0); EOS # 0.2 10^3/uL (0.0-0.5); EOS % 3.8 % (0.0-3.0); HEMATOCRIT 38.5 % (36.0-47.0); HEMOGLOBIN 12.1 g/dl (12.0-15.5); LYMPH # 1.4 10^3/uL (1.5-5.0); LYMPH % 30.9 % (24.0-44.0); MEAN CORPUSCULAR HEMOGLOBIN 24.3 pg (27.0-33.0); MEAN CORPUSCULAR HGB CONC 31.4 g/dl (32.0-36.5); MEAN CORPUSCULAR VOLUME 77.5 fl (80.0-96.0); MONO # 0.4 10^3/uL (0.0-0.8); MONO % 8.4 % (2.0-8.0); NEUTROPHILS # 2.5 10^3/uL (1.5-8.5); NEUTROPHILS % 55.4 % (36.0-66.0); PLATELET COUNT, AUTOMATED 308 10^3/uL (150-450); RED BLOOD COUNT 4.97 10^6/uL (4.00-5.40); WHITE BLOOD COUNT 4.5 10^3/uL (4.0-10.0)
[2021-09-03 14:39] LABS: ALBUMIN 3.6 GM/DL (3.2-5.2); BILIRUBIN,DIRECT 0.1 MG/DL (0.0-0.2); BILIRUBIN,TOTAL 0.5 MG/DL (0.2-1.0); TOTAL PROTEIN 7.6 GM/DL (6.4-8.2)
[2021-09-03 15:15] LABS: FREE T4 1.01 NG/DL (0.76-1.46); THYROID STIMULATING HORMONE 0.337 uIU/ML (0.358-3.740)
[2021-09-03 15:18] LABS: APPEARANCE, URINE CLEAR (CLEAR); BACTERIA, URINE AUTO NEGATIVE (NEGATIVE); BILIRUBIN, URINE AUTO NEGATIVE (NEGATIVE); BLOOD, URINE BLOOD NEGATIVE (NEGATIVE); COLOR, URINE YELLOW (YELLOW); GLUCOSE, URINE (UA) AUTO NEGATIVE (NEGATIVE); KETONE, URINE AUTO NEGATIVE (NEGATIVE); LEUKOCYTE ESTERASE, URINE AUTO NEGATIVE (NEGATIVE); MUCUS, URINE SMALL (NEGATIVE); NITRITE, URINE AUTO NEGATIVE (NEGATIVE); PROTEIN, URINE AUTO NEGATIVE (NEGATIVE); RBC, URINE AUTO 0 /HPF (0-3); SPECIFIC GRAVITY URINE AUTO 1.026 (1.002-1.035); SQUAMOUS EPITHELIAL CELL UR AU 0 /HPF (0-6); WBC, URINE AUTO 0 /HPF (0-3)
[2021-09-03] MEDS ORDERED: ACETAMINOPHEN 500 MG TAB PO ONE (15:40)
[2021-09-03 16:07] VITALS: BP 130/80
--- NOTE | 2021-09-03 20:24 | ECGEPIP ---
[facility] - ED Test Date: 2021-09-03 Pat Name: HUMAIRA CARDOZA Department: Room: - Gender: Female Certified Diabetes Educator: SASKIA : 1990 Requested By: CASANDRA MARSH PA-C. Order Number: [id number] Reading MD: Josefa Redding Measurements Intervals [place] Rate: 69 P: 52 [place]: 122 QRS: 18 QRSD: 80 T: 26 QT: 408 QTc: 437 Interpretive Statements Normal sinus rhythm No prior Electronically Signed on 09-03-2021 20:24:10 EDT by Josefa Redding
== END 2021-09-03 17:21 | disposition home or self-care (01) ==
LOC: M ED 10:57
DX: R03.0 Elevated blood-pressure reading, without diagnosis of hypertension (principal); R51.9 Headache, unspecified; D25.9 Leiomyoma of uterus, unspecified; Z88.1 Allergy status to other antibiotic agents

== ENCOUNTER 2021-09-10 00:14 | Emergency (ER) | payer OTHER ==
[~2021-09-10] VITALS: Ht 172.7 cm; Wt 83.5 kg
[2021-09-10] MEDS ORDERED: CART120C PO (00:23)
[2021-09-10] MEDS ORDERED: ACET1TAB55 PO (00:23)
--- OUTSIDE RECORDS SUMMARY | 2021-09-10 00:24 | CCD ---
Author Author [facility] Organization [facility] Address Unknown Phone Unavailable Care Team Providers Care Flight Test Mechanic Name Role Phone NOBLE Nakul HARRISRI Unavailable [...] Unavailable Unavailable Jamila SOUTH MD Unavailable Unavailable aJmila SOUTH MD Unavailable Unavailable Jamila SOUTH MD [...] Unavailable Trini Gayle MD Unavailable Unavailable Trini Gyale MD Unavailable Unavailable Trini Gayle MD Unavailable [...] is protected by Article 27-F of the [facility] Public Health law. If you continue you may have access to information: Regarding HIV / AIDS; Provided by facilities licensed or operated by the [facility] Office of Mental Health; or Provided by the [facility] Office for People With Developmental Disabilities. If such information is present, then the following [facility] mandated warning applies: This information [...] law may result in a fine or half-way sentence or both. A general authorization for the release of medical or other information is NOT sufficient authorization for further disc losure. Encounters Encounter Providers Location Date Indications Data Source(s ) Outpatient Attender: ANABEL BUCKLEYeferrer: Dharmesh lea MD [id number] 04/01/2021 12:00:00 AM [facility] Outpatient Attender: MARBELLA DICKEYReferrer: Dharmesh Flores 04/01/2021 12:00:00 AM [facility] Medications No Information Insurance Providers Payer name Policy type / Coverage type Policy ID Covered alliance party ID Covered alliance party's relationship to porter Policy Porter Plan Information U [id number] Self [id number] EAST ACTIVE DUTY [id number] SP [id number] ACTIVE DUTY [id number] SP [id number] SELF PAY ONLY [id number] SP [id number] Problems, Conditions, and Diagnoses No Information Surgeries/Procedures No Information Results ID Date Data Source [id number] 04/01/2021 10:45:54 AM EDT [facility] Name Value Range Interpretation Code Description Data Cierra rce(s) Supporting Document(s) Progress Note [facility] [id number] lbm [file] [id number] Procedure Social History Code Duration Value Status Description Data Source(s ) Alcohol intake 04/01/2021 12:00:00 AM EDT Ex-drinker (finding) comp leted Ex- drinker (finding) [facility] Tobacco use and exposure 04/01/2021 12:00:00 AM EDT Never used co mpleted Never used [facility] Smoking 04/01/2021 12:00:00 AM EDT Never smoker completed Never s moker [facility] 09/18/2020 12:00:00 AM EST completed [facility] Vital Signs ID Date Data Source [id number] 04/01/2021 10:45:54 AM EDT [facility] Name Value Range Interpretation Code Description Data Source(s) WEIGHT RECORDED 185.8 lb 185.8 lb [facility] Body height Measured 69 in 69 in [facility]
--- OUTSIDE RECORDS SUMMARY | 2021-09-10 04:21 | CCD ---
Author Author [facility] Organization [facility] Address Unknown Phone Unavailable Care Team Providers Care Salvage Cutter Name Role Phone NOBLE Nakul HARRISRI Unavailable [...] Unavailable Unavailable Jamila SOUTH MD Unavailable Unavailable Jamial SOUTH MD Unavailable Unavailable Jamila SOUTH MD [...] is protected by Article 27-F of the [facility] Public Health law. If you continue you may have access to information: Regarding HIV / AIDS; Provided by facilities licensed or operated by the [facility] Office of Mental Health; or Provided by the [facility] Office for People With Developmental Disabilities. If such information is present, then the following [facility] mandated warning applies: This information [...] law may result in a fine or longterm sentence or both. A general authorization for the release of medical or other information is NOT sufficient authorization for further disc losure. Encounters Encounter Providers Location Date Indications Data Source(s ) Outpatient Attender: ANABEL BUCKLEYeferrer: Dharmesh lea MD [id number] 04/01/2021 12:00:00 AM [facility] Outpatient Attender: MARBELLA DICKEYReferrer: Dharmesh Flores 04/01/2021 12:00:00 AM [facility] Medications No Information Insurance Providers Payer name Policy type / Coverage type Policy ID Covered constitution party ID Covered constitution party's relationship to porter Policy Porter Plan Information U [id number] Self [id number] EAST ACTIVE DUTY [id number] SP [id number] ACTIVE DUTY [id number] SP [id number] SELF PAY ONLY [id number] SP [id number] Problems, Conditions, and Diagnoses No Information Surgeries/Procedures No Information Results ID Date Data Source [id number] 04/01/2021 10:45:[address] [facility] Name Value Range Interpretation Code Description Data Cierra rce(s) Supporting Document(s) Progress Note [facility] [id number] lbm [file] [id number] Procedure Social History Code Duration Value Status Description Data Source(s ) Alcohol intake 04/01/2021 12:00:00 AM EDT Ex-drinker (finding) comp leted Ex- drinker (finding) [facility] Tobacco use and exposure 04/01/2021 12:00:00 AM EDT Never used co mpleted Never used [facility] Smoking 04/01/2021 12:00:00 AM EDT Never smoker completed Never s moker [facility] 09/18/2020 12:00:00 AM EST completed [facility] Vital Signs ID Date Data Source [id number] 04/01/2021 10:45:[address] [facility] Name Value Range Interpretation Code Description Data Source(s) WEIGHT RECORDED 185.8 lb 185.8 lb [facility] Body height Measured 69 in 69 in [facility]
[2021-09-10] MEDS ORDERED: NS 1,000 ML IV ONE (04:55)
[2021-09-10] MEDS ORDERED: KETOROLAC 30 MG/ML 1ML VIAL IM ONE (04:55)
[2021-09-10 06:02] LABS: BASO # 0.1 10^3/uL (0.0-0.2); BASO % 1.2 % (0.0-1.0); EOS # 0.3 10^3/uL (0.0-0.5); EOS % 6.3 % (0.0-3.0); HEMOGLOBIN 11.8 g/dl (12.0-15.5); LYMPH # 1.4 10^3/uL (1.5-5.0); LYMPH % 33.3 % (24.0-44.0); MEAN CORPUSCULAR HEMOGLOBIN 24.3 pg (27.0-33.0); MEAN CORPUSCULAR HGB CONC 31.1 g/dl (32.0-36.5); MEAN CORPUSCULAR VOLUME 78.2 fl (80.0-96.0); MONO # 0.3 10^3/uL (0.0-0.8); NEUTROPHILS # 2.1 10^3/uL (1.5-8.5); PLATELET COUNT, AUTOMATED 277 10^3/uL (150-450); RED BLOOD COUNT 4.86 10^6/uL (4.00-5.40); WHITE BLOOD COUNT 4.1 10^3/uL (4.0-10.0)
[2021-09-10] MEDS ORDERED: CHLORTHALIDONE 25 MG TAB PO ONE (06:20)
[2021-09-10 06:22] LABS: BLOOD UREA NITROGEN 19 MG/DL (7-18); CALCIUM LEVEL 8.8 MG/DL (8.5-10.1); CARBON DIOXIDE LEVEL 26 MEQ/L (21-32); CHLORIDE LEVEL 104 MEQ/L (98-107); CREATININE FOR GFR 0.77 MG/DL (0.55-1.30); GLOMERULAR FILTRATION RATE > 60.0 (>60); GLUCOSE, FASTING 84 MG/DL (70-100); MAGNESIUM LEVEL 2.4 MG/DL (1.8-2.4); POTASSIUM SERUM 4.3 MEQ/L (3.5-5.1); SODIUM LEVEL 138 MEQ/L (136-145)
--- NOTE | 2021-09-10 06:44 | REPVR ---
PROCEDURE INFORMATION: Exam: CT Head Without Contrast Exam date and time: 09/10/2021 6:20 AM Age: 31 years old Clinical indication: Pain; Headache; Migraine; Aura effect not specified TECHNIQUE: Imaging protocol: Computed tomography of the head without contrast. Radiation optimization: All CT scans at this facility use at least one of these dose optimization techniques: automated exposure control; mA and/or kV adjustment per patient size (includes targeted exams where dose is matched to clinical indication); or iterative reconstruction. COMPARISON: No relevant prior studies available. FINDINGS: Brain: Normal. No hemorrhage. Unremarkable white matter. No mass effect. Cerebral ventricles: No ventriculomegaly. Paranasal sinuses: Visualized sinuses are unremarkable. No fluid levels. Mastoid air cells: Visualized mastoid air cells are well aerated. Bones/joints: Unremarkable. No acute fracture. Soft tissues: Unremarkable. IMPRESSION: No acute intracranial abnormality. Electronically signed by: Edwar Sanabria On 09/10/2021 06:44:15 AM
[2021-09-10] MEDS ORDERED: CHLO125TA PO (08:16)
[2021-09-10 08:20] VITALS: BP 136/91
--- NOTE | 2021-09-10 10:16 | ECGEPIP ---
[facility] - ED Test Date: 2021-09-10 Pat Name: HUMAIRA CARDOZA Department: Room: - Gender: Female Syrup Mixer: KWAKU : 1990 Requested By: MAHENDRA Hurley Order Number: [id number] Reading MD: Josefa Redding Measurements Intervals [place] Rate: 60 P: 63 [place]: 154 QRS: 29 QRSD: 80 T: 38 QT: 426 QTc: 426 Interpretive Statements Normal sinus rhythm decreased rate 09/03/21 Electronically Signed on 09-10-2021 10:16:36 EDT by Josefa Redding
== END 2021-09-10 08:26 | disposition home or self-care (01) ==
LOC: M ED 00:14
DX: R51.9 Headache, unspecified (principal); G89.29 Other chronic pain; I10 Essential (primary) hypertension; Z79.899 Other long term (current) drug therapy; Z88.1 Allergy status to other antibiotic agents
CPT/HCPCS: 70450; 80048; 83735; 85025; 93005; 96372; 99284; J1885